=== PATIENT | male | born 1945 | race Caucasian/White ===

== ENCOUNTER 2023-03-16 01:19 | Emergency (ER) | payer MEDICARE, BC ==
[2023-03-16 01:33] VITALS: TEMP 98.2
[2023-03-16] MEDS ORDERED: ONDANSETRON 4 MG/2 ML VIAL IVP STA (02:09)
[2023-03-16 02:31] LABS: Basophils % (A) 1 %; Eosinophils # (A) 0.2 k/uL (0-0.7); Eosinophils % (A) 3 %; HCT 48.5 % (39.0-53.0); HGB 16.4 gm/dL (13.0-17.5); Lymphocytes # (A) 1.9 k/uL (1.0-4.8); Lymphocytes % (A) 26 %; MCH 29.8 pg (25.0-35.0); MCHC 33.9 g/dL (31.0-37.0); MCV 88.1 fL (80.0-100.0); Mean Platelet Volume 8.8; Monocytes # (A) 0.4 k/uL (0-1.0); Monocytes % (A) 5 %; Neutrophils # (A) 4.8 k/uL (1.3-7.7); Neutrophils % (A) 64 %; Platelet Count 149 k/uL (150-450); RDW 12.8 % (11.5-15.5); WBC 7.5 k/uL (3.8-10.6)
[2023-03-16] MEDS ORDERED: MORPHINE SULFATE 4 MG/ML SYRINGE IVP STA (02:38)
[2023-03-16] MEDS ORDERED: SODIUM CHLORIDE 0.9% 500 ML 500 ML IV ONE (02:38)
[2023-03-16 02:48] LABS: Albumin 3.9 g/dL (3.5-5.0); Potassium 4.1 mmol/L (3.5-5.1); Total Bilirubin 0.8 mg/dL (0.2-1.3); Total Protein 6.4 g/dL (6.3-8.2)
[2023-03-16 03:49] LABS: Appearance,Urine Clear (Clear); Bilirubin,Urine Negative (Negative); Blood,Urine Negative (Negative); Color,Urine Yellow; Glucose,Urine (UA) 4+ (Negative); Ketones,Urine Negative (Negative); Leukocyte Esterase,Urine Negative (Negative); Nitrite,Urine Negative (Negative); Protein,Urine Negative (Negative); Urobilinogen,Urine <2.0 mg/dL (<2.0)
--- NOTE | 2023-03-16 07:26 | CT ---
EXAMINATION TYPE: CT abdomen pelvis wo con DATE OF EXAM: 03/16/2023 COMPARISON: None HISTORY: 77-year-old male left flank pain, urinary frequency CT DLP: 1096.4 mGycm. Automated exposure control for dose reduction was used. TECHNIQUE: Contiguous axial scanning of the abdomen and pelvis without IV contrast. Coronal and sagit eryn reconstructions performed. FINDINGS: Median sternotomy wires are present with post-CABG changes. Endovascular aortic valve replacement not ed. Ectatic lower ascending aorta at 3.9 cm. Strandy atelectasis of the lung bases. Nonspecific couple pulmonary nodules at the left base measuring 7 mm and 5 mm, axial image 18 for whi ch a three-month follow-up CT chest is recommended. 5 mm pulmonary nodule at the right base, axial im age 9. There is a small to moderate-sized hiatal hernia. Noncontrast appearance of the liver, adrenal glands, spleen with a anterior hilar splenule, and pancr eas show no gross abnormal body. Left kidney shows an exophytic cyst posteriorly measuring 2.0 cm and on the right measuring 1.4 cm an teriorly at the lower pole. No nephrolithiasis or hydronephrosis is seen. Moderate atherosclerotic calcifications infrarenal abdominal aorta and common iliac arteries. There i s mild fusiform dilatation up to 2.4 cm there is no aneurysm. No dilated small bowel, free fluid, or free air. No mesenteric or retroperitoneal lymphadenopathy. Normal appendix. There is mild to moderate stool burden. Mildly redundant sigmoid colon. No pericolon ic inflammatory change. Bladder is urine distended. Multiple pelvic phleboliths. Prostate gland measures 4.1 cm wide, mildly enlarged. No abnormal fluid collection the pelvis or pelvic lymphadenopathy. Bones: Moderate to advanced multilevel spondylotic changes in the visualized spine. Degenerative grad e 1 anterolisthesis L4-L5 and grade 1 retrolisthesis L1-L2 and L2-L3. Advanced hypertrophic facet art hropathy mid to lower lumbar spine. Degenerated dextroconvex scoliosis. IMPRESSION: 1. No nephrolithiasis or hydronephrosis. 2. A few pulmonary nodules at the lung bases measuring up to 7 mm. Recommend three-month follow-up C T chest to reassess and also to survey the remainder of the lungs. 3. Small to moderate-sized hiatal hernia. 4. Mild to moderate stool burden. 5. Moderate to advanced spondylotic change of the visualized spine.
[2023-03-16 07:32] VITALS: RESP 18
[2023-03-16] MEDS ORDERED: LIDOCAINE 5% PATCH TOPICAL STA (07:59)
[2023-03-16] MEDS ORDERED: methocarbamoL 750 MG TAB PO STA (07:59)
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
[2023-03-16 09:01] VITALS: BP 128/77; PULSE 78
== END 2023-03-16 09:07 | disposition home or self-care (01) ==
LOC: EC 01:19
DX: K44.9 Diaphragmatic hernia without obstruction or gangrene (principal); I10 Essential (primary) hypertension; E11.9 Type 2 diabetes mellitus without complications; I25.10 Atherosclerotic heart disease of native coronary artery without angina pectoris; Z88.1 Allergy status to other antibiotic agents; Z88.2 Allergy status to sulfonamides; Z88.8 Allergy status to other drugs, medicaments and biological substances; Z90.49 Acquired absence of other specified parts of digestive tract
CPT/HCPCS: 36415; 80053; 83690; 85025; 81003; 74176; 99284; 96374; 96375; 96361 ×5; J2270; J2405